=== PATIENT | male | born 1960 | race Caucasian/White ===

== ENCOUNTER 2017-03-22 07:47 | Observation (INO) | payer BC, OTHER, SELFPAY ==
[~2017-03-22] VITALS: Ht 188 cm; Wt 109.2 kg
[2017-03-22 08:20] LABS: HEMATOCRIT 49.1 % (39.2-51.8); HEMOGLOBIN 16.4 g/dL (13.7-18.0); WHITE BLOOD COUNT 13.2 x10^3/uL (3.4-10)
[2017-03-22] MEDS ORDERED: ONDANSETRON 2MG/ML, 2ML ONE ×2 (08:26→12:15)
[2017-03-22] MEDS ORDERED: HYDROmorphone 1 MG/ML, 1ML ONE ×3 (08:26→13:02)
[2017-03-22 08:28] LABS: ASPARTATE AMINO TRANSFERASE 19 U/L (15-37); BLOOD UREA NITROGEN 20 mg/dL (7-18)
[2017-03-22] MEDS: HYDROmorphone 1 MG/ML, 1ML IVPush PRN ×2 (08:28→09:32)
[2017-03-22] MEDS ORDERED: SODIUM CHLORIDE FLUSH 10ML SYR IVF ONE (08:30)
[2017-03-22] MEDS ORDERED: ONDANSETRON 2MG/ML, 2ML IVPush ONE (08:30)
[2017-03-22] MEDS ORDERED: MORPHINE SULFATE 4 MG/ML, 1ML IVPush PRN ×2 (11:00→19:00)
[2017-03-22] MEDS ORDERED: LEVOFLOXACIN/PMX 750MG/150ML 150 ML IVPB ONE (11:00)
[2017-03-22] MEDS ORDERED: LEVOFLOXACIN/PMX 750MG/150ML 150 ML ONE (11:07)
[2017-03-22] MEDS ORDERED: MORPHINE SULFATE 4 MG/ML, 1ML ONE (11:07)
[2017-03-22] MEDS ORDERED: D5%-0.45% NACL 1,000 ML IV SCH (11:28)
[2017-03-22] MEDS ORDERED: ONDANSETRON 2MG/ML, 2ML IVPush PRN (11:30)
[2017-03-22] MEDS ORDERED: DOCUSATE 100 MG CAPSULE PO PRN (11:30)
[2017-03-22] MEDS ORDERED: LABETALOL 5MG/ML, 20ML IVPush PRN (11:30)
[2017-03-22] MEDS ORDERED: HYDROmorphone 2 MG/ML, 1ML IVPush PRN (11:30)
[2017-03-22] MEDS ORDERED: TEMAZEPAM 15 MG CAPSULE PO PRN ×2 (11:30→18:30)
[2017-03-22] MEDS ORDERED: none per pt (12:26)
[2017-03-22 13:08] VITALS: BP 111/76
[2017-03-22] MEDS ORDERED: LACTATED RINGERS 1,000 ML IV SCH (13:20)
[2017-03-22] MEDS ORDERED: KETAMINE 10 MG/ML, 20ML ONE (13:51)
[2017-03-22] MEDS ORDERED: MIDAZOLAM 1 MG/ML, 2ML ONE (13:52)
[2017-03-22] MEDS ORDERED: FENTANYL PF 250 MCG/5ML ONE (13:52)
[2017-03-22] MEDS ORDERED: SUCCINYLCHOLINE 20 MG/ML, 10ML ONE (14:17)
[2017-03-22] MEDS ORDERED: PROPOFOL 10 MG/ML, 20ML ONE (14:17)
[2017-03-22] MEDS ORDERED: DEXAMETHASONE 4 MG/ML, 1ML ONE (14:17)
[2017-03-22] MEDS ORDERED: ROCURONIUM 10 MG/ML ONE (14:17)
[2017-03-22] MEDS ORDERED: MEPERIDINE/PF 25MG/0.5ML IVPush PRN (15:00)
[2017-03-22] MEDS ORDERED: PROMETHAZINE 25 MG/ML, 1ML IV PRN (15:00)
[2017-03-22] MEDS ORDERED: OXYcodone 5 MG/5 ML ORAL.SOL UDC PO PRN (15:00)
[2017-03-22] MEDS ORDERED: FENTANYL PF 100 MCG/2ML IV PRN (15:00)
[2017-03-22] MEDS ORDERED: ACETAMINOPHEN 325 MG TABLET PO PRN ×2 (15:00→18:30)
[2017-03-22] MEDS ORDERED: HYDROmorphone 1 MG/ML, 1ML IV PRN (15:00)
[2017-03-22] MEDS ORDERED: OMNIPAQUE 350 MG/ML, 50 ML BOTTLE ONE (15:16)
[2017-03-22] MEDS ORDERED: ACETAMINOPHEN 650 MG/20.3 ML UDC ONE (15:17)
[2017-03-22] MEDS ORDERED: FENTANYL PF 100 MCG/2ML ONE (15:17)
[2017-03-22] MEDS ORDERED: MEPERIDINE/PF 25MG/0.5ML ONE (15:17)
[2017-03-22] MEDS ORDERED: OXYcodone 5 MG/5 ML ORAL.SOL UDC ONE (15:17)
[2017-03-22 16:20] VITALS: BP 117/77
[2017-03-22] MEDS: CIPROFLOXACIN 500 MG TABLET PO SCH (20:39)
[2017-03-22 20:49] VITALS: BP 117/80
[2017-03-22 23:36] VITALS: BP 103/69
[2017-03-22] MEDS: D5%-LACTATED RINGERS 1,000 ML IV SCH (23:47)
[2017-03-23] MEDS: HYDROcodone/APAP 5/325 TABLET PO PRN ×4 (03:09→15:10)
[2017-03-23 03:56] VITALS: BP 115/71
[2017-03-23 05:14] LABS: HEMATOCRIT 43.4 % (39.2-51.8); HEMOGLOBIN 14.3 g/dL (13.7-18.0); WHITE BLOOD COUNT 17.7 x10^3/uL (3.4-10)
[2017-03-23 05:28] LABS: ASPARTATE AMINO TRANSFERASE 11 U/L (15-37); BLOOD UREA NITROGEN 15 mg/dL (7-18)
[2017-03-23 08:00] VITALS: BP 98/62
[2017-03-23] MEDS: D5%-LACTATED RINGERS 1,000 ML IV SCH (09:00)
[2017-03-23] MEDS ORDERED: SENNA/DOCUSATE TABLET PO SCH (09:00)
[2017-03-23] MEDS: CIPROFLOXACIN 500 MG TABLET PO SCH (09:15)
[2017-03-23] MEDS ORDERED: CIPR500T87 PO (13:12)
[2017-03-23] MEDS ORDERED: HYDR-3240 PO (13:13)
[2017-03-23 15:44] VITALS: BP 145/81
[2017-03-24] MEDS ORDERED: LEVOFLOXACIN/PMX 500MG/100ML 100 ML IV SCH (11:00)
== END 2017-03-23 16:00 | disposition home or self-care (01) ==
LOC: ED 09:48 → EDIP 11:28 → INTOOBSV 11:28 → 4NOR 16:44
PROVIDERS: ADMIT Internal Medicine; ATTEND Internal Medicine
DX: N13.2 Hydronephrosis with renal and ureteral calculous obstruction (principal); N17.8 Other acute kidney failure; N39.0 Urinary tract infection, site not specified; D72.829 Elevated white blood cell count, unspecified; R73.9 Hyperglycemia, unspecified; R79.89 Other specified abnormal findings of blood chemistry; Z88.2 Allergy status to sulfonamides; Z87.442 Personal history of urinary calculi
CPT/HCPCS: 36415; 52356; 74176; 74420; 80053; 81001; 82360; 83605; 85025; 87040; 87077; 87086; 87186; 88300; 96365; 96366; 96375; 96376; 99285; C1758; C1769; C2617; G0378; J0330; J1100; J1170; J1956; J2250; J2405; J2704; J3010; Q9967; J7121

== ENCOUNTER → 2017-10-16 | Outpatient (CLI) | payer BC ==
[~2017-10-16] MED LIST: ALLO100T30 PO; CIPR500T87 PO; HYDR-3240 PO; TAMS-11 PO; none per pt; potassium citrate PO
[2017-10-16 12:20] LABS: BASOPHILS # (AUTO) 0.05 x10^3/uL (0-0.1); BASOPHILS % (AUTO) 1 % (0-1); EOSINOPHILS # (AUTO) 0.08 x10^3/uL (0-0.4); EOSINOPHILS % (AUTO) 1 % (1-7); LYMPHOCYTES # (AUTO) 1.75 x10^3/uL (1-3.4); LYMPHOCYTES % (AUTO) 22 % (22-44); MD NO; MEAN CORPUSCULAR HEMOGLOBIN 29.8 pg (27.5-34.5); MEAN CORPUSCULAR HGB CONC 34.2 g/dL (33.2-36.2); MEAN CORPUSCULAR VOLUME 87.3 fL (81-97); MEAN PLATELET VOLUME 8.5 fL (7.4-10.4); MONOCYTES # (AUTO) 0.59 x10^3/uL (0.2-0.8); MONOCYTES % (AUTO) 8 % (2-9); NEUTROPHILS % (AUTO) 69 % (42-75); PLATELET COUNT 183 x10^3/uL (130-400); RED BLOOD COUNT 5.25 x10^6/uL (4.38-5.82); RED CELL DISTRIBUTION WIDTH 13.9 % (9.4-14.8)
[2017-10-16 12:25] LABS: INTERNATIONAL NORMALIZED RATIO 1.06 (0.93-1.1); PROTHROMBIN TIME 10.9 Seconds (9.6-11.5)
[2017-10-16 12:28] LABS: ALANINE AMINOTRANSFERASE 34 U/L (12-78); ALBUMIN 3.8 g/dL (3.4-5.0); ANION GAP 7 mmol/L (5-15); CALCIUM 8.3 mg/dL (8.5-10.1); CHLORIDE 109 mmol/L (98-107)
[2017-10-16 12:31] LABS: ALKALINE PHOSPHATASE 55 U/L (45-117); BILIRUBIN,TOTAL 0.6 mg/dL (0.2-1.0); CREATININE 1.08 mg/dL (0.7-1.3); TOTAL PROTEIN 6.7 g/dL (6.4-8.2)
[2017-10-16 12:49] LABS: MICROSCOPIC INDICATED
== END | disposition home or self-care (01) ==
LOC: STAR 10:49
PROVIDERS: ATTEND Urology
DX: Z01.818 Encounter for other preprocedural examination (principal); N20.0 Calculus of kidney
CPT/HCPCS: 36415; 71046; 80053; 81001; 85025; 85610; 85730; 87086; 93005

== ENCOUNTER → 2017-10-23 | Outpatient (CLI) | payer BC | END | disposition home or self-care (01) | LOC: RAD 13:08 | PROVIDERS: ATTEND Urology | DX: N20.0 Calculus of kidney (principal) | CPT/HCPCS: 74018 ==

== ENCOUNTER 2017-10-30 06:35 | Day surgery (SDC) | payer BC ==
[~2017-10-30] VITALS: Ht 188 cm; Wt 106.9 kg
[2017-10-30] MEDS ORDERED: SODIUM CHLORIDE 0.9% 1,000 ML IV SCH (07:23)
[2017-10-30] MEDS ORDERED: PLEASE ENTER HEIGHT AND WEIGHT MC SCH (07:30)
[2017-10-30] MEDS ORDERED: LIDOCAINE 1%, 20ML ONE (07:47)
[2017-10-30 07:52] VITALS: BP 122/82
[2017-10-30] MEDS ORDERED: CIPROFLOXACIN/PMX 400MG/200ML 200 ML IV ONE (08:00)
[2017-10-30] MEDS ORDERED: MIDAZOLAM 1 MG/ML, 5ML ONE (08:11)
[2017-10-30] MEDS ORDERED: FLUMAZENIL 0.1 MG/1 ML, 5ML ONE (08:11)
[2017-10-30] MEDS ORDERED: FENTANYL PF 100 MCG/2ML ONE (08:11)
[2017-10-30] MEDS ORDERED: NALOXONE 1 MG/ML, 2ML ONE (08:11)
== END 2017-10-30 11:45 ==
LOC: OUT 06:35
PROVIDERS: ATTEND Urology
DX: I10 Essential (primary) hypertension (principal)
CPT/HCPCS: 50432; 76942; 99156; 99157; C1729; J0744; J2250; J3010; J3490; J7030; J2310

== ENCOUNTER 2017-10-31 05:29 | Observation (INO) | payer BC ==
[~2017-10-31] VITALS: Ht 188 cm; Wt 107.8 kg
[~2017-10-31 05:29] MED LIST changes: +CIPROFLOXACIN/PMX 400MG/200ML 200 ML IV ONE
[2017-10-31] MEDS ORDERED: LACTATED RINGERS 1,000 ML IV SCH (06:02)
[2017-10-31 06:26] VITALS: BP 145/99
[2017-10-31] MEDS ORDERED: PROPOFOL 10 MG/ML, 20ML ONE (07:06)
[2017-10-31] MEDS ORDERED: ROCURONIUM 10 MG/ML,10ML ONE (07:06)
[2017-10-31] MEDS ORDERED: LIDOCAINE-MPF 2% ,5ML ONE (07:07)
[2017-10-31] MEDS ORDERED: ACETAMINOPHEN 325 MG TABLET PO PRN (07:30)
[2017-10-31] MEDS ORDERED: FENTANYL PF 100 MCG/2ML IV PRN (07:30)
[2017-10-31] MEDS ORDERED: morphine SULFATE 10 MG/ML, 1ML IV PRN ×2 (07:30→11:00)
[2017-10-31] MEDS ORDERED: HYDROcodone/APAP 7.5-325MG/15ML UDC PO PRN (07:30)
[2017-10-31] MEDS ORDERED: MEPERIDINE/PF 25MG/0.5ML IVPush PRN (07:30)
[2017-10-31] MEDS ORDERED: ONDANSETRON 2MG/ML, 2ML IVPush PRN (07:30)
[2017-10-31] MEDS ORDERED: OXYcodone 5 MG/5 ML ORAL.SOL UDC PO PRN (07:30)
[2017-10-31] MEDS ORDERED: CEFAZOLIN 1,000 MG ONE ×2 (08:01)
[2017-10-31] MEDS ORDERED: GENTAMICIN 80 MG/2 ML ONE (08:01)
[2017-10-31] MEDS ORDERED: FENTANYL PF 250 MCG/5ML ONE (08:20)
[2017-10-31] MEDS ORDERED: EPHEDRINE 50 MG/ML, 1ML ONE (08:41)
[2017-10-31] MEDS ORDERED: DEXAMETHASONE 4 MG/ML, 1ML ONE ×2 (08:43)
[2017-10-31] MEDS ORDERED: ACETAMINOPHEN 650 MG/20.3 ML UDC ONE (10:50)
[2017-10-31] MEDS ORDERED: OXYcodone 5 MG/5 ML ORAL.SOL UDC ONE (10:50)
[2017-10-31] MEDS ORDERED: HYDROcodone/APAP 5/325 TABLET PO PRN (11:00)
[2017-10-31] MEDS ORDERED: TEMAZEPAM 15 MG CAPSULE PO PRN (11:00)
[2017-10-31] MEDS ORDERED: OPIUM/BELLADONNA SUPP.RECT 16.2-60 MG PR PRN (11:00)
[2017-10-31] MEDS: D5%-LACTATED RINGERS 1,000 ML IV SCH ×2 (11:16→19:58)
[2017-10-31 13:28] VITALS: BP 129/75
[2017-10-31] MEDS: ONDANSETRON 2MG/ML, 2ML IV PRN ×2 (14:06→20:01)
[2017-10-31 16:46] LABS: ALBUMIN 3.3 g/dL (3.4-5.0); ANION GAP 7 mmol/L (5-15); CALCIUM 8.2 mg/dL (8.5-10.1); CHLORIDE 109 mmol/L (98-107); CREATININE 1.27 mg/dL (0.7-1.3)
[2017-10-31] MEDS: CEFAZOLIN PMX 1GM/50ML 50 ML IVPB SCH ×2 (16:49→23:55)
[2017-10-31 19:31] VITALS: BP 113/70
[2017-11-01 02:15] VITALS: BP 115/77
[2017-11-01] MEDS: D5%-LACTATED RINGERS 1,000 ML IV SCH (05:33)
[2017-11-01 07:07] VITALS: BP 128/73
[2017-11-01] MEDS ORDERED: TAMSULOSIN 0.4 MG CAP.ER.24H PO SCH (09:00)
[2017-11-01] MEDS ORDERED: ALLOPURINOL 100 MG TABLET PO SCH (09:00)
[2017-11-01] MEDS ORDERED: HYDR-3240 PO (14:07)
[2017-11-01 14:09] VITALS: BP 114/64
== END 2017-11-01 14:21 | disposition home or self-care (01) ==
LOC: OUT 05:29 → ORIP 10:45 → 4NOR 11:33 → DCLOUNGE 11-01 14:21
PROVIDERS: ADMIT Urology; ATTEND Urology
DX: N13.2 Hydronephrosis with renal and ureteral calculous obstruction (principal); E78.00 Pure hypercholesterolemia, unspecified; N20.0 Calculus of kidney
CPT/HCPCS: 36415; 50431; 50561; 52356; 74425; 80048; 82040; 82360; 85018; 88300; 96365; 96375; 96376; C1726; C1727; C1758; C1769; C2617; G0378; J0690; J1100; J1580; J2405; J2704; J3010; J3490; J7120; J7121

== ENCOUNTER → 2017-12-21 | Outpatient (CLI) | payer BC ==
[~2017-12-21] MED LIST changes: -CIPROFLOXACIN/PMX 400MG/200ML 200 ML IV ONE
== END ==
LOC: RAD 07:20
PROVIDERS: ATTEND Urology
DX: Z02.9 Encounter for administrative examinations, unspecified (principal)

== ENCOUNTER → 2018-01-22 | Outpatient (CLI) | payer BC ==
[2018-01-22 13:21] LABS: MICROSCOPIC AUTO
== END | disposition home or self-care (01) ==
LOC: RAD 12:01
PROVIDERS: ATTEND Urology
DX: N20.0 Calculus of kidney (principal)
CPT/HCPCS: 74018; 81001; 87086

== ENCOUNTER → 2018-03-08 | Outpatient (CLI) | payer BC ==
[~2018-03-08] MED LIST changes: +OMNIPAQUE 300 MG/ML, 10ML VIAL ONE
== END | disposition home or self-care (01) ==
LOC: RAD 07:39
PROVIDERS: ATTEND Urology
DX: N28.89 Other specified disorders of kidney and ureter (principal); N20.0 Calculus of kidney
CPT/HCPCS: 74410; Q9967

== ENCOUNTER → 2018-03-28 | Outpatient (CLI) | payer BC ==
[~2018-03-28] MED LIST changes: -OMNIPAQUE 300 MG/ML, 10ML VIAL ONE
== END | disposition home or self-care (01) ==
LOC: RAD 12:12
PROVIDERS: ATTEND Urology
DX: N28.89 Other specified disorders of kidney and ureter (principal)
CPT/HCPCS: 74018

== ENCOUNTER → 2018-10-23 | Outpatient (CLI) | payer BC | END | disposition home or self-care (01) | LOC: CFH 08:41 | PROVIDERS: ATTEND Urology | DX: K57.30 Diverticulosis of large intestine without perforation or abscess without bleeding (principal); K40.90 Unilateral inguinal hernia, without obstruction or gangrene, not specified as recurrent; N20.0 Calculus of kidney | CPT/HCPCS: 74176 ==